=== PATIENT | female | born 1960 | race Caucasian/White ===

== ENCOUNTER 2017-01-24 11:15 | Inpatient (IN) | payer SELFPAY ==
[2017-01-24] VITALS (13 sets, daily range): BP systolic 107–145; BP diastolic 69–95; PULSE 75–130; RESP 18–28; TEMP 98.1–98.9; O2SAT 88–98
[~2017-01-24] VITALS: Ht 162.6 cm; Wt 78.8 kg
[~2017-01-24 11:15] MED LIST: BENZ100 PO; MEDR4PAK3 PO; VENTAER INH; ZITH250T PO
[2017-01-24] MEDS: RESP: ALBUTEROL 2.5 MG/IPRATROPIUM 0.5 MG NEB (SCH) INH ×2 (11:42→11:43)
[2017-01-24] MEDS ORDERED: methylPREDNISolone SOD SUCC 125 MG/2 ML VIAL IV PUSH ONE (11:45)
[2017-01-24] MEDS ORDERED: SODIUM CHLORIDE 0.9% FLUSH 10 ML FLUSH IVF PRN (11:45)
[2017-01-24 11:50] LABS: AUTOMATED NEUTROPHIL # 3.7 TH/MM3 (1.8-7.7); BASOPHIL # 0.1 TH/MM3 (0-0.2); BASOPHIL % 1.7 % (0.0-2.0); EOSINOPHIL # 0.3 TH/MM3 (0-0.4); EOSINOPHIL % 4.8 % (0.0-4.0); HEMATOCRIT 38.1 % (35.0-46.0); HEMO FLAGS DIFF FINAL; LYMPHOCYTE # 2.4 TH/MM3 (1.0-4.8); MEAN CELL VOLUME 95.1 FL (80.0-100.0); MEAN CORPUSCULAR HEMOGLOBIN 31.9 PG (27.0-34.0); MEAN CORPUSCULAR HGB CONC 33.6 % (32.0-36.0); MONO % 8.6 % (0.0-8.0); NEUT % 50.9 % (16.0-70.0); PLATELET COUNT 264 TH/MM3 (150-450); RED BLOOD COUNT 4.01 MIL/MM3 (4.00-5.30); RED CELL DISTRIBUTION WIDTH 13.7 % (11.6-17.2); WHITE BLOOD COUNT 7.1 TH/MM3 (4.0-11.0)
--- NOTE | 2017-01-24 11:55 | RADRPT ---
EXAM DATE/TIME: 01/24/2017 11:34 [place] COMPARISON: No previous studies available for comparison. INDICATIONS : Cough and short of breath MEDICAL HISTORY : None. SURGICAL HISTORY : Fusion, cervical. ENCOUNTER: Initial ACUITY: 1 day PAIN SCORE: 0/10 LOCATION: Bilateral chest FINDINGS: A single view of the chest demonstrates the lungs to be symmetrically aerated without evidence of mas s, infiltrate or effusion. The cardiomediastinal contours are unremarkable. Osseous structures are intact. CONCLUSION: No acute disease. Kevin Izaguirre MD FACR on January 24, 2017 at 11:52 Board Certified Radiologist. This report was verified electronically.
[2017-01-24 11:58] LABS: CHLORIDE 103 MEQ/L (98-107); POTASSIUM 3.8 MEQ/L (3.5-5.1); SODIUM (NA) 141 MEQ/L (136-145)
[2017-01-24 12:02] LABS: ANION GAP 8 MEQ/L (5-15); BICARBONATE 30.3 MEQ/L (21.0-32.0); BLOOD UREA NITROGEN 7 MG/DL (7-18)
[2017-01-24 12:05] LABS: ALT (GPT) 23 U/L (10-53); AST (GOT) 15 U/L (15-37); GLOMERULAR FILTRATION RATE 149 ML/MIN (>89)
[2017-01-24 12:07] LABS: TOTAL BILIRUBIN ADULT 0.2 MG/DL (0.2-1.0)
[2017-01-24 12:08] LABS: ALKALINE PHOSPHATASE 95 U/L (45-117)
--- NOTE | 2017-01-24 12:11 | PD ---
HPI Chief Complaint: Respiratory Symptoms Time Seen by Provider: 11:29 Travel History International Travel<30 days: No Contact w/Intl Traveler<30days: No Traveled to known affect area: No History of Present Illness HPI This is a 56-year-old female who does have a [id number] smoking history who presents to the emergency department with increasing shortness of breath over the past 4 days, constant, moderate severity associated with a productive cough with clear sputum. She denies any fevers or chills. Her shortness of breath is worse with exertion. She denies any chest pain. She's not been any long trips or car rides. She says her oxygen saturation at home was 84% which prompted her to come to the emergency department. 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) Allergies-Medications (Allergen,Severity, Reaction): Uncoded Allergies: NARCOTICS (Adverse Reaction, Unknown, 04/17/11) PT DOES NOT WANT TO BE GIVEN ANY NARCOTIC MEDICATIONS Reported Meds & Prescriptions Reported Meds & Active Scripts Active Medrol Dosepak (Methylprednisolone) 4 Mg Franco 4 Mg PO DIRECTED TAKE DIRECTED Ventolin Hfa (Albuterol Sulfate) 18 Gm Aero 2 Puff INH Q4 PRN * SHAKE WELL BEFORE USE * Tessalon Perles (Benzonatate) 100 Mg Cap 100 Mg PO TID PRN Zithromax Z-Franco (Azithromycin) 250 Mg Tab 250 Mg PO DIRECTED 500 MG (2 TABLETS) PO ON DAY 1, THEN 250 MG (1 TABLET) PO ON DAYS 2 TO 5. Review of Systems Except as stated in HPI: all other systems reviewed are Neg Physical Exam Narrative GENERAL:Well appearing, no acute distress SKIN: Focused skin assessment warm and dry. HEAD: Atraumatic. Normocephalic. EYES: Pupils equal and round. No injection or drainage. ENT: Moist mucous membranes NECK: Trachea midline. CARDIOVASCULAR: Regular rate and rhythm. No murmur appreciated. RESPIRATORY: Diffuse wheezing. No accessory muscle use. GASTROINTESTINAL: Abdomen soft, non-tender, nondistended. MUSCULOSKELETAL: No obvious deformities. NEUROLOGICAL: Awake and alert. No obvious cranial nerve deficits. Moving all extremities. PSYCHIATRIC: Appropriate mood and affect; insight and judgment normal. Data Data Last Documented VS Vital Signs Date Time Temp Pulse Resp B/P (MAP) Pulse Ox O2 Delivery O2 Flow Rate FiO2 01/24/17 12:51 130 24 145/75 (98) 88 Nasal Cannula 2.00 01/24/17 11:20 98.4 Orders Orders Electrocardiogram (01/24/17 11:32) Complete Blood Count With Diff (01/24/17 11:32) Comprehensive Metabolic Panel (01/24/17 11:32) Chest, Single Ap (01/24/17 11:32) Ecg Monitoring (01/24/17 11:32) Iv Access Insert/Monitor (01/24/17 11:32) Oximetry (01/24/17 11:32) Oxygen Administration (01/24/17 11:32) Methylprednisolone So Succ Inj (Solumedr (01/24/17 11:45) Albuterol-Ipratropium Neb (Duoneb Neb) (01/24/17 11:45) Sodium Chloride 0.9% Flush (Ns Flush) (01/24/17 11:45) Troponin I (01/24/17 11:32) D-Dimer (01/24/17 11:32) Labs Laboratory Tests Test 01/24/17 11:40 White Blood Count 7.1 TH/MM3 Red Blood Count 4.01 MIL/MM3 Hemoglobin 12.8 GM/DL Hematocrit 38.1 % Mean Corpuscular Volume 95.1 FL Mean Corpuscular Hemoglobin 31.9 PG Mean Corpuscular Hemoglobin Concent 33.6 % Red Cell Distribution Width 13.7 % Platelet Count 264 TH/MM3 Mean Platelet Volume 7.6 FL Neutrophils (%) (Auto) 50.9 % Lymphocytes (%) (Auto) 34.0 % Monocytes (%) (Auto) 8.6 % Eosinophils (%) (Auto) 4.8 % Basophils (%) (Auto) 1.7 % Neutrophils # (Auto) 3.7 TH/MM3 Lymphocytes # (Auto) 2.4 TH/MM3 Monocytes # (Auto) 0.6 TH/MM3 Eosinophils # (Auto) 0.3 TH/MM3 Basophils # (Auto) 0.1 TH/MM3 CBC Comment DIFF FINAL Differential Comment D-Dimer Quantitative (PE/DVT) 0.38 MG/L FEU Blood Urea Nitrogen 7 MG/DL Creatinine 0.44 MG/DL Random Glucose 79 MG/DL Total Protein 7.1 GM/DL Albumin 3.4 GM/DL Calcium Level 8.3 MG/DL Alkaline Phosphatase 95 U/L Aspartate Amino Transf (AST/SGOT) 15 U/L Alanine Aminotransferase (ALT/SGPT) 23 U/L Total Bilirubin 0.2 MG/DL Sodium Level 141 MEQ/L Potassium Level 3.8 MEQ/L Chloride Level 103 MEQ/L Carbon Dioxide Level 30.3 MEQ/L Anion Gap 8 MEQ/L Estimat Glomerular Filtration Rate 149 ML/MIN Troponin I LESS THAN 0.02 NG/ML MDM Medical Decision Making Medical Screen Exam Complete: Yes Emergency Medical Condition: Yes Interpretation(s) Afebrile, tachycardic, hypertensive, hypoxic No leukocytosis Electrolytes are reassuring Troponin is normal D-dimer is 0.38 Chest x-rays reassuring Differential Diagnosis Bronchitis, COPD, pneumonia, pulmonary embolism Narrative Course This is a 56-year-old female who presents the emergency department with increasing shortness of breath it's been going on for several days. She has a [id number] smoking history. She is placed in a monitor and an IV was established. She was hypoxic on arrival which easily corrected with nasal cannula. Labs are obtained which were reassuring. Patient was given serial bronchodilator treatments and steroids and her symptoms improved. She ambulated around the emergency department and again became tachycardic and desaturated to 88%. I think she requires admission for likely COPD exacerbation. Diagnosis Primary Impression: COPD exacerbation Admitting Information Admitting Physician Requests: Admit Violetta Roberson MD Jan 24, 2017 12:11
--- NOTE | 2017-01-24 13:38 | EKG ---
Date Performed: 01/24/2017 Time Performed: 12:05:33 PTAGE: 56 years EKG: SINUS TACHYCARDIA WITH OCCASIONAL SUPRAVENTRICULAR PREMATURE COMPLEXES POSSIBLE LEFT ATRIAL ENLARGEMENT INCOMPLETE RIGHT BUNDLE BRANCH BLOCK LEFT ANTERIOR FASCICULAR BLOCK POSSIBLE ANTERIOR MY OCARDIAL INFARCTION ABNORMAL ECG PREVIOUS TRACING : 07/23/2010 08.21 DOCTOR: Дмитрий Aguilar Interpretating Date/Time 01/24/2017 13:37:18
--- NOTE | 2017-01-24 15:56 | HHI.HP ---
[facility] No Primary Care Physician Admission Diagnosis copd exacerbation Diagnoses: Chief Complaint: shortness of breath, low oxygen levels Travel History International Travel<30 Days: No Contact w/Intl Traveler <30 Da: No Traveled to Known Affected Are: No History of Present Illness 56-year-old white female being admitted for COPD exacerbation. Patient was in her usual state of health until earlier this morning when she woke up and found herself to be short of breath at rest, she noted that this was more profound with exertion. She used a home pulse oximeter which read 84% and then decided to proceed to the emergency room. She reports feeling some lightheadedness. Does report having had a productive wet cough with a runny nose earlier in the week. Denies any chest pain, nausea, vomiting, fevers, chills. Denies ever being hospitalized in the past for COPD exacerbation, denies ever undergoing spirometry testing. Denies ever taking inhaler medications as a child. Review of Systems Except as stated in HPI: all other systems reviewed are Neg Past Family Social History Past Medical History HTN Allergies: Uncoded Allergies: NARCOTICS (Adverse Reaction, Unknown, 04/17/11) PT DOES NOT WANT TO BE GIVEN ANY NARCOTIC MEDICATIONS Family History lung cancer in both parents Social History smokes since teenage years, 6-7 cigarettes daily, denies illicit drug use, reports very scant ETOH use Physical Exam Vital Signs Vital Signs Date Time Temp Pulse Resp B/P (MAP) Pulse Ox O2 Delivery O2 Flow Rate FiO2 01/24/17 15:30 01/24/17 15:30 98.9 114 22 107/69 (82) 96 01/24/17 14:25 119 20 114/73 (87) 98 Nasal Cannula 2.00 01/24/17 13:48 109 20 126/75 (92) 94 Nasal Cannula 2.00 01/24/17 13:48 98.1 109 20 126/75 (92) 94 Nasal Cannula 2.00 01/24/17 12:51 130 24 145/75 (98) 88 Nasal Cannula 2.00 01/24/17 12:49 88 Room Air 01/24/17 12:00 18 96 Nasal Cannula 2.00 01/24/17 12:00 96 Nasal Cannula 2.00 01/24/17 11:59 96 Nasal Cannula 2.00 01/24/17 11:42 95 Nasal Cannula 2.00 01/24/17 11:20 98.4 130 18 145/95 (112) 93 Physical Exam VS: afebrile GENERAL: middle age white woman in NAD SKIN: Warm and dry. EYES: Pupils equal and round. No scleral icterus. No injection or drainage. ENT: No nasal bleeding or discharge. Mucous membranes pink and moist. CARDIOVASCULAR: Regular rate and rhythm. no murmurs RESPIRATORY: No accessory muscle use. BL expiratory wheezing w/ mildly diminished breath sounds GASTROINTESTINAL: Abdomen soft, non-tender, nondistended. Hepatic and splenic margins not palpable. Extremities: No clubbing, cyanosis, or edema. No obvious deformities. MUSCULOSKELETAL: Extremities without clubbing, cyanosis, or edema. No obvious deformities. grossly intact ROM with 5/5 strength in upper and lower extremities proximally NEUROLOGICAL: Awake and alert. No obvious cranial nerve deficits. No facial droop nor slurred speech noted. PSYCHIATRIC: Appropriate mood and affect; insight and judgment normal. Laboratory Laboratory Tests Test 01/24/17 11:40 White Blood Count 7.1 Red Blood Count 4.01 Hemoglobin 12.8 Hematocrit 38.1 Mean Corpuscular Volume 95.1 Mean Corpuscular Hemoglobin 31.9 Mean Corpuscular Hemoglobin Concent 33.6 Red Cell Distribution Width 13.7 Platelet Count 264 Mean Platelet Volume 7.6 Neutrophils (%) (Auto) 50.9 Lymphocytes (%) (Auto) 34.0 Monocytes (%) (Auto) 8.6 Eosinophils (%) (Auto) 4.8 Basophils (%) (Auto) 1.7 Neutrophils # (Auto) 3.7 Lymphocytes # (Auto) 2.4 Monocytes # (Auto) 0.6 Eosinophils # (Auto) 0.3 Basophils # (Auto) 0.1 CBC Comment DIFF FINAL Differential Comment D-Dimer Quantitative (PE/DVT) 0.38 Blood Urea Nitrogen 7 Creatinine 0.44 Random Glucose 79 Total Protein 7.1 Albumin 3.4 Calcium Level 8.3 Alkaline Phosphatase 95 Aspartate Amino Transf (AST/SGOT) 15 Alanine Aminotransferase (ALT/SGPT) 23 Total Bilirubin 0.2 Sodium Level 141 Potassium Level 3.8 Chloride Level 103 Carbon Dioxide Level 30.3 Anion Gap 8 Estimat Glomerular Filtration Rate 149 Troponin I LESS THAN 0.02 Result Diagram: 01/24/17 1140 01/24/17 1140 Imaging Last Impressions Chest X-Ray 01/24/17 1132 Signed Impressions: Service Date/Time: Tuesday, January 24, 2017 11:34 - CONCLUSION: No acute disease. Kevin Izaguirre MD FACR Capjordii VTE Risk Assessment Caprini VTE Risk Assessment: Mod/High Risk (score >= 2) Caprini Risk Assessment Model Point Value = 1 Point Value = 2 Point Value = 3 Point Value = 5 Age 41-60 Minor surgery BMI > 25 kg/m2 Swollen legs Varicose veins or History of unexplained or recurrent spontaneous Oral contraceptives or hormone replacement Sepsis (< 1 month) Serious lung disease, including pneumonia (< 1 month) Abnormal pulmonary function Acute myocardial infarction Congestive heart failure (< 1 month) History of inflammatory bowel disease Medical patient at bed rest Age 61-74 Arthroscopic surgery Major open surgery (> 45 min) Laparoscopic surgery (> 45 min) Malignancy Confined to bed (> 72 hours) Immobilizing plaster cast Central venous access Age >= 75 History of VTE Family history of VTE Factor V Leiden Prothrombin [id number] Lupus anticoagulant Anticardiolipin antibodies Elevated serum homocysteine Heparin-induced thrombocytopenia Other congenital or acquired thrombophilia Stroke (< 1 month) Elective arthroplasty Hip, pelvis, or leg fracture Acute spinal cord injury (< 1 month) Prophylaxis Regimen Total Risk Factor Score Risk Level Prophylaxis Regimen 0-1 Low Early ambulation 2 Moderate Order ONE of the following: *Sequential Compression Device (SCD) *Heparin 5000 units SQ BID 3-4 Higher Order ONE of the following medications: *Heparin 5000 units SQ TID *Enoxaparin/Lovenox 40 mg SQ daily (WT < 150 kg, CrCl > 30 mL/min) *Enoxaparin/Lovenox 30 mg SQ daily (WT < 150 kg, CrCl > 10-29 mL/min) *Enoxaparin/Lovenox 30 mg SQ BID (WT < 150 kg, CrCl > 30 mL/min) AND/OR *Sequential Compression Device (SCD) 5 or more Highest Order ONE of the following medications: *Heparin 5000 units SQ TID (Preferred with Epidurals) *Enoxaparin/Lovenox 40 mg SQ daily (WT < 150 kg, CrCl > 30 mL/min) *Enoxaparin/Lovenox 30 mg SQ daily (WT < 150 kg, CrCl > 10-29 mL/min) *Enoxaparin/Lovenox 30 mg SQ BID (WT < 150 kg, CrCl > 30 mL/min) AND *Sequential Compression Device (SCD) Assessment and Plan Assessment and Plan 56-year-old white female being admitted for shortness of breath secondary to COPD exacerbation COPD exacerbation - Starting high-dose IV steroids, DuoNeb's, albuterol as needed for wheezing - I independently reviewed the chest x-ray which shows hyperexpanded lung man with likely chronic changes from smoking Hypoxia - Secondary to COPD exacerbation, d-dimer negative, highly unlikely for pulmonary embolism - Treat as above for COPD, supplemental oxygen, wean as tolerated Tobacco use - Patient counseled on avoiding further tobacco use since this has contributed to her current lung status, is not interested in a nicotine patch at this time. Lovenox for DVT prophylaxis. Discussed case with ER attending and nurse, no deterioration since beginning treatment in the emergency room. Physician Certification 2 Midnight Certification Type: Admission for Inpatient Services Order for Inpatient Services The services are ordered in accordance with Medicare regulations or non- Medicare payer requirements, as applicable. In the case of services not specified as inpatient-only, they are appropriately provided as inpatient services in accordance with the 2-midnight benchmark. Estimated LOS (days): 2 2 days is the estimated time the patient will need to remain in the hospital, assuming treatment plan goals are met and no additional complications. Post-Hospital Plan: Home Du Patel MD Jan 24, 2017 15:56
[2017-01-24] MEDS: RESP: ALBUTEROL 2.5 MG/IPRATROPIUM 0.5 MG NEB (SCH) NEB ×2 (16:50→19:20)
[2017-01-24] MEDS: ENOXAPARIN SODIUM 30 MG/0.3 ML SYRINGE SQ SCH (17:02)
[2017-01-24] MEDS ORDERED: methylPREDNISolone SOD SUCC 125 MG/2 ML VIAL IV PUSH SCH (18:00)
[2017-01-24] MEDS: ACETAMINOPHEN 325 MG TAB PO PRN (21:24)
[2017-01-25] VITALS (15 sets, daily range): BP systolic 118–137; BP diastolic 68–77; PULSE 66–126; RESP 12–30; TEMP 97.3–98.7; O2SAT 92–97
[2017-01-25] MEDS: ACETAMINOPHEN 325 MG TAB PO PRN (03:57)
[2017-01-25] MEDS: methylPREDNISolone SOD SUCC 125 MG/2 ML VIAL IV PUSH SCH ×3 (03:57→17:30)
[2017-01-25] MEDS: RESP: ALBUTEROL 2.5 MG/IPRATROPIUM 0.5 MG NEB (SCH) NEB ×3 (07:38→15:32)
[2017-01-25] MEDS ORDERED: ACETAMINOPHEN/CODEINE 300 MG/30 MG TAB PO ONE (09:15)
[2017-01-25] MEDS ORDERED: INFLUENZA VIRUS VACCINE (QUADRIVALENT) 0.5 ML SYR IM ONE (10:00)
[2017-01-25] MEDS: ENOXAPARIN SODIUM 30 MG/0.3 ML SYRINGE SQ SCH (17:00)
[2017-01-25] MEDS ORDERED: PRED10PA PO (17:18)
--- NOTE | 2017-01-25 17:27 | HHI.DCPOC ---
Discharge Care Plan Diagnosis: (1) COPD exacerbation Goals to Promote Your Health * To prevent worsening of your condition and complications * To maintain your health at the optimal level Directions to Meet Your Goals Take your medications as prescribed Follow your dietary instruction Follow activity as directed Keep your appointments as scheduled Take your immunizations and boosters as scheduled If your symptoms worsen call your PCP, if no PCP go to Urgent Care Center or Emergency Room Smoking is Dangerous to Your Health. Avoid second hand smoke Call the 24-hour hour crisis hotline for domestic abuse at Du Patel MD Jan 25, 2017 17:27
[2017-01-25] MEDS ORDERED: BUDE.25I NEB (17:28)
--- NOTE | 2017-01-25 17:32 | HHI.DS ---
Discharge Summary Admission Date Jan 24, 2017 at 13:27 Discharge Date: Jan 25, 2017 Admitting Diagnosis copd exacerbation (1) COPD exacerbation ICD Code: J44.1 - Chronic obstructive pulmonary disease with (acute) exacerbation Status: Acute Procedures none Brief History - From Admission 56-year-old white female being admitted for COPD exacerbation. Patient was in her usual state of health until earlier this morning when she woke up and found herself to be short of breath at rest, she noted that this was more profound with exertion. She used a home pulse oximeter which read 84% and then decided to proceed to the emergency room. She reports feeling some lightheadedness. Does report having had a productive wet cough with a runny nose earlier in the week. Denies any chest pain, nausea, vomiting, fevers, chills. Denies ever being hospitalized in the past for COPD exacerbation, denies ever undergoing spirometry testing. Denies ever taking inhaler medications as a child. CBC/BMP: 01/24/17 1140 01/24/17 1140 Significant Findings Laboratory Tests Test 01/24/17 11:40 Monocytes (%) (Auto) 8.6 % (0.0-8.0) Eosinophils (%) (Auto) 4.8 % (0.0-4.0) Creatinine 0.44 MG/DL (0.50-1.00) Calcium Level 8.3 MG/DL (8.5-10.1) Troponin I LESS THAN 0.02 NG/ML PE at Discharge Slightly diminished breath sounds bilaterally, no wheezing, unlabored breathing , no cyanosis no clubbing of extremities Hospital Course Patient was admitted, started on IV steroids for COPD exacerbation. Her hypoxia resolved within 20 hours and her dyspnea at rest had resolved and she was able to ambulate with mild dyspnea on exertion. Patient felt ready to go home. Was counseled on smoking cessation and taking her appropriate steroid daily inhaled medications. Patient has met maximum benefit from hospitalization and is clinically stable for discharge. Pt Condition on Discharge: Stable Discharge Disposition: Discharge Home Discharge Time: <= 30 minutes Discharge Instructions DIET: Follow Instructions for: As Tolerated, No Restrictions Activities you can perform: Regular-No Restrictions Follow up Referrals: PCP Follow-up - 1 Week New Medications: Budesonide Neb (Pulmicort Respules) 0.25 Mg/2 Ml Neb 0.25 MG NEB Q12HR NEB for Breathing Treatment, #60 NEBULE 0 Refills Prednisone (21) 10 mg tab Dose Pack (Prednisone (21) 10 mg tab Dose Pack) 10 Mg Pack 10 MG PO DIRECTED for Inflammation, #1 DSPK 0 Refills Continued Medications: Albuterol Sulfate (Ventolin Hfa) 18 Gm Aero 2 PUFF INH Q4 PRN for WHEEZING, #1 BOX * SHAKE WELL BEFORE USE * Benzonatate (Tessalon Perles) 100 Mg Cap 100 MG PO TID PRN for COUGH, #15 CAP Discontinued Medications: Azithromycin (Zithromax Z-Ira) 250 Mg Tab 250 MG PO DIRECTED, #6 TAB 500 MG (2 TABLETS) PO ON DAY 1, THEN 250 MG (1 TABLET) PO ON DAYS 2 TO 5. Methylprednisolone (Medrol Dosepak) 4 Mg Ira 4 MG PO DIRECTED, #1 IRA TAKE DIRECTED Du Patel MD Jan 25, 2017 17:32
== END 2017-01-25 18:10 | disposition home or self-care (01) | DRG 192 ==
LOC: PHED 11:15 → PHEDA 13:27 → PHICU 15:18
PROVIDERS: ADMIT Family Medicine; ATTEND Family Medicine
PROC: 3E0F7GC Introduction of Other Therapeutic Substance into Respiratory Tract, Via Natural or Artificial Opening (ICD-10-PCS; principal; 2017-01-24)
DX: J44.1 Chronic obstructive pulmonary disease with (acute) exacerbation (principal); I10 Essential (primary) hypertension; F17.210 Nicotine dependence, cigarettes, uncomplicated; R09.02 Hypoxemia; Z23 Encounter for immunization
CPT/HCPCS: 71010; 80053; 84484; 85025; 85379; 90471; 90686; 93005; 94640; 94664; 96374; G0008; J1650; J2930; Q2038